=== PATIENT | female | born 1940 | race Two or more races ===

== ENCOUNTER 2021-01-31 10:12 | Inpatient (IN) | payer MEDICARE ==
[~2021-01-31] VITALS: Ht 165.1 cm; Wt 68.5 kg
[2021-01-31] MEDS ORDERED: SODIUM CHLORIDE 0.9% 500 ML IVB ONE (10:45)
[2021-01-31] MEDS ORDERED: ACETAMINOPHEN 650 MG RECT SUPP PR ONE ×2 (10:55→11:00)
[2021-01-31 11:18] LABS: Urine Bacteria NONE SEEN /hpf (None Seen); Urine Blood Negative /uL (Negative); Urine Specific Gravity 1.008 (1.001-1.035); Urine WBC 1 /hpf (0 - 5)
[2021-01-31 11:37] LABS: Alcohol, Urine < 3.0 mg/dL (0-10); Amphetamine Screen, Urine NEGATIVE (NEGATIVE); Barbiturate Scree,Urine NEGATIVE (NEGATIVE); Benzodiazephine Screen, Urine POSITIVE (NEGATIVE); Cannabinoid Screen, Urine NEGATIVE (NEGATIVE); Cocaine Screen, Urine NEGATIVE (NEGATIVE); Opiate Scree,Urine NEGATIVE (NEGATIVE); Phencyclidine Screen, Urine NEGATIVE (NEGATIVE)
[2021-01-31 11:41] LABS: Basophils # (auto) 0.1 10 ^3/uL (0-0.2); Basophils % (auto) 0.8 % (0.0-2.0); Eosinophils # (auto) 0.2 10 ^3/uL (0-0.8); Eosinophils % (auto) 1.3 % (0.0-7.0); Hematocrit 34.3 % (36.0-46.0); Hemoglobin 11.2 g/dL (12.2-16.2); Lymphocytes # (auto) 1.4 10 ^3/uL (0.4-5.4); Lymphocytes % (auto) 10.2 % (10.0-50.0); Mean Corpuscular Hemoglobin 26.3 pg (28.0-32.0); Mean Corpuscular Hgb Conc. 32.8 g/dL (32.0-36.0); Mean Corpuscular Volume 80.3 fL (80.0-100.0); Monocytes # (auto) 0.9 10 ^3/uL (0-1.3); Monocytes % (auto) 6.7 % (0.0-12.0); Neutrophils # (auto) 11.1 10 ^3/uL (1.6-8.6); Nucleated Red Blood Cells % 0.1 %; Red Blood Cells 4.27 10^6/uL (4.0-5.20); Red Cell Distribution Width 20.2 % (11.8-14.3); White Blood Cell 13.7 10^3/uL (4.4-10.8)
[2021-01-31 11:58] LABS: INR 1.02 (0.9-1.15); Partial Thromboplastin Time 21.1 sec (23.6-33.0)
[2021-01-31 12:15] LABS: Albumin 3.1 g/dL (3.4-5.0); Calcium 8.5 mg/dL (8.5-10.1); Potassium 3.8 mmol/L (3.5-5.1)
[2021-01-31 12:23] LABS: BUN/Creatinine Ratio 11.3; Bilirubin, Total 0.6 mg/dL (0.2-1.0); Total Protein 6.7 g/dL (6.4-8.2)
[2021-01-31] MEDS ORDERED: MORPHINE SULFATE INJECTION 2 MG/2 ML SYRG IV PRN ×2 (13:30)
[2021-01-31] MEDS ORDERED: HYDROcodone-ACET 5/325MG TAB PO PRN (13:30)
[2021-01-31] MEDS ORDERED: NITROGLYCERIN 0.4 MG SL TAB SL PRN (13:30)
[2021-01-31] MEDS ORDERED: ONDANSETRON HCL 4 MG/2 ML VIAL IV PRN (13:30)
[2021-01-31] MEDS ORDERED: ACETAMINOPHEN 500 MG TAB PO PRN ×2 (13:30)
[2021-01-31] MEDS: SODIUM CHLORIDE 0.9% 1,000 ML IV SCH ×2 (14:31→23:30)
[2021-01-31] MEDS ORDERED: PIPERACILLIN-TAZOB 3.375GM 100 ML IV SCH (18:00)
[2021-01-31] MEDS: PIPERACILLIN-TAZOB 3.375GM 100 ML IV SCH (18:16)
[2021-01-31] MEDS: HYDROcodone-ACET 5/325MG TAB PO PRN (22:52)
[2021-02-01] MEDS: PIPERACILLIN-TAZOB 3.375GM 100 ML IV SCH ×4 (00:19→18:14)
[2021-02-01] MEDS: SODIUM CHLORIDE 0.9% 1,000 ML IV SCH ×2 (01:30→18:15)
[2021-02-01 04:47] LABS: Basophils # (auto) 0.1 10 ^3/uL (0-0.2); Eosinophils # (auto) 0.2 10 ^3/uL (0-0.8); Hemoglobin 10.3 g/dL (12.2-16.2); Lymphocytes # (auto) 0.8 10 ^3/uL (0.4-5.4); Lymphocytes % (auto) 10.8 % (10.0-50.0); Mean Corpuscular Hemoglobin 26.6 pg (28.0-32.0); Mean Corpuscular Hgb Conc. 32.9 g/dL (32.0-36.0); Mean Corpuscular Volume 80.9 fL (80.0-100.0); Monocytes # (auto) 0.5 10 ^3/uL (0-1.3); White Blood Cell 7.2 10^3/uL (4.4-10.8)
[2021-02-01 04:49] LABS: Hematocrit 31.4 % (36.0-46.0); Monocytes % (auto) 6.6 % (0.0-12.0); Neutrophils # (auto) 5.7 10 ^3/uL (1.6-8.6); Neutrophils % (auto) 78.6 % (37.0-80.0); Red Blood Cells 3.88 10^6/uL (4.0-5.20)
[2021-02-01 04:59] LABS: Red Cell Distribution Width 20.4 % (11.8-14.3)
[2021-02-01 05:06] LABS: Potassium 4.3 mmol/L (3.5-5.1)
[2021-02-01 05:22] LABS: BUN/Creatinine Ratio 13.6; Calcium 8.4 mg/dL (8.5-10.1)
[2021-02-01] MEDS: ASPirin-EC 81 mg tab PO SCH (11:03)
[2021-02-01] MEDS: MORPHINE SULFATE INJECTION 2 MG/2 ML SYRG IV PRN (14:12)
[2021-02-01] MEDS: HYDROcodone-ACET 5/325MG TAB PO PRN (18:29)
[2021-02-02] MEDS: PIPERACILLIN-TAZOB 3.375GM 100 ML IV SCH ×5 (01:04→23:50)
[2021-02-02] MEDS: HYDROcodone-ACET 5/325MG TAB PO PRN ×2 (01:04→15:15)
[2021-02-02] MEDS: SODIUM CHLORIDE 0.9% 1,000 ML IV SCH (01:05)
[2021-02-02] MEDS: hydrALAZINE HCL 20 MG/ML VL IV PRN ×4 (02:05→22:59)
[2021-02-02] MEDS: MORPHINE SULFATE INJECTION 2 MG/2 ML SYRG IV PRN ×2 (03:12→20:16)
[2021-02-02] MEDS: ONDANSETRON HCL 4 MG/2 ML VIAL IV PRN ×2 (08:15→19:01)
[2021-02-02] MEDS ORDERED: LORazepam 2MG/ML-1ML VIAL IV PRN (09:45)
[2021-02-02] MEDS: ASPirin-EC 81 mg tab PO SCH (10:00)
[2021-02-02] MEDS ORDERED: amLODIPine BESYLATE 5 MG TAB PO ONE (18:45)
[2021-02-02] MEDS: PROCHLORPERAZINE EDISYLATE 5 MG/ML 2ML VIAL IV ONE ×2 (18:49→18:54)
[2021-02-02 21:50] VITALS: BP 193/73
[2021-02-02 22:44] VITALS: BP 193/73
[2021-02-03] MEDS: ONDANSETRON HCL 4 MG/2 ML VIAL IV PRN ×2 (02:15→08:44)
[2021-02-03] MEDS: MORPHINE SULFATE INJECTION 2 MG/2 ML SYRG IV PRN ×2 (02:42→08:46)
[2021-02-03 05:00] VITALS: BP 146/76
[2021-02-03] MEDS: PIPERACILLIN-TAZOB 3.375GM 100 ML IV SCH ×3 (06:15→18:00)
[2021-02-03] MEDS: ASPirin-EC 81 mg tab PO SCH (08:44)
[2021-02-03 09:00] VITALS: BP 144/66
[2021-02-03] MEDS ORDERED: amLODIPine BESYLATE 5 MG TAB PO SCH (10:00)
[2021-02-03 13:06] VITALS: BP 145/64
[2021-02-03] MEDS ORDERED: AMLO-496 PO (15:13)
[2021-02-03] MEDS ORDERED: LEVO500T31 PO (15:14)
[2021-02-03] MEDS ORDERED: LOSA25TA38 PO (15:15)
[2021-02-03 16:53] VITALS: BP 154/76
[2021-02-03 17:07] VITALS: BP 133/69
== END 2021-02-03 18:00 | disposition home or self-care (01) | DRG 871 ==
LOC: EDBD 10:12 → ER 10:12 → TELE 13:17 → TELE-CENTR 02-02 21:49
PROVIDERS: ADMIT Nurse Practitioner Acute Care; ATTEND Internal Medicine Nephrology
PROC: 06HM33Z Insertion of Infusion Device into Right Femoral Vein, Percutaneous Approach (ICD-10-PCS; principal; 2021-01-31)
DX: A41.9 Sepsis, unspecified organism (principal); G93.41 Metabolic encephalopathy; I21.A1 Myocardial infarction type 2; J15.6 Pneumonia due to other Gram-negative bacteria; M86.8X7 Other osteomyelitis, ankle and foot; I13.0 Hypertensive heart and chronic kidney disease with heart failure and stage 1 through stage 4 chronic kidney disease, or unspecified chronic kidney disease; J44.0 Chronic obstructive pulmonary disease with (acute) lower respiratory infection; J96.10 Chronic respiratory failure, unspecified whether with hypoxia or hypercapnia; N17.9 Acute kidney failure, unspecified; Z20.822 Contact with and (suspected) exposure to COVID-19; L97.529 Non-pressure chronic ulcer of other part of left foot with unspecified severity; N18.31 Chronic kidney disease, stage 3a; L03.032 Cellulitis of left toe; E86.1 Hypovolemia; R15.9 Full incontinence of feces; G89.4 Chronic pain syndrome; D64.9 Anemia, unspecified; I50.9 Heart failure, unspecified; M41.9 Scoliosis, unspecified; Z91.83 Wandering in diseases classified elsewhere; R65.20 Severe sepsis without septic shock
CPT/HCPCS: 36415; 36556; 70450; 71045; 71250; 73700; 80048; 80053; 80307; 81001; 82728; 82962; 83605; 83735; 84484; 85025; 85379; 85610; 85730; 86141; 87040; 87086; 87426; 93005; 93306; 93926; 93970; 95819; 96360; 99291; G0378; J2405; J2543

== ENCOUNTER 2022-01-08 10:22 | Inpatient (IN) | payer MEDICARE, OTHER ==
[~2022-01-08] VITALS: Ht 162.6 cm; Wt 71.5 kg
[~2022-01-08 10:22] MED LIST: AMLO-496 PO; LEVO500T31 PO; LOSA25TA38 PO
[2022-01-08] MEDS ORDERED: SODIUM CHLORIDE 0.9% 1,000 ML IV ONE (12:30)
[2022-01-08 13:21] LABS: Urine Bacteria NONE SEEN /hpf (None Seen); Urine Blood 1+ /uL (Negative); Urine Specific Gravity 1.044 (1.001-1.035); Urine WBC 14 /hpf (0 - 5)
[2022-01-08 14:21] LABS: Basophils # (auto) 0 10 ^3/uL (0-0.2); Basophils % (auto) 0.5 % (0.0-2.0); Eosinophils # (auto) 0 10 ^3/uL (0-0.8); Eosinophils % (auto) 0.1 % (0.0-7.0); Hematocrit 43.9 % (36.0-46.0); Hemoglobin 13.9 g/dL (12.2-16.2); Lymphocytes # (auto) 1.2 10 ^3/uL (0.4-5.4); Lymphocytes % (auto) 10.9 % (10.0-50.0); Mean Corpuscular Hemoglobin 28.2 pg (28.0-32.0); Mean Corpuscular Hgb Conc. 31.7 g/dL (32.0-36.0); Mean Corpuscular Volume 89.1 fL (80.0-100.0); Monocytes # (auto) 0.8 10 ^3/uL (0-1.3); Monocytes % (auto) 7.1 % (0.0-12.0); Neutrophils # (auto) 8.6 10 ^3/uL (1.6-8.6); Neutrophils % (auto) 81.4 % (37.0-80.0); Nucleated Red Blood Cells % 0.1 %; Red Blood Cells 4.93 10^6/uL (4.0-5.20); Red Cell Distribution Width 18.6 % (11.8-14.3); White Blood Cell 10.6 10^3/uL (4.4-10.8)
[2022-01-08] MEDS ORDERED: ONDANSETRON HCL 4 MG/2 ML VIAL IV ONE ×2 (14:30→16:00)
[2022-01-08 14:31] LABS: Albumin 3.7 g/dL (3.4-5.0); BUN/Creatinine Ratio 14.6; Calcium 8.7 mg/dL (8.5-10.1); Potassium 3.7 mmol/L (3.5-5.1)
[2022-01-08 14:34] LABS: Bilirubin, Total 0.6 mg/dL (0.2-1.0); Total Protein 6.5 g/dL (6.4-8.2)
[2022-01-08] MEDS: ASPirin 81 mg TAB PO ONE ×2 (14:45→15:05)
[2022-01-08] MEDS ORDERED: ENOXAPARIN SOD 80 MG/0.8ML SYRINGE SC ONE (14:45)
[2022-01-08] MEDS ORDERED: FUROSEMIDE 100 MG/10ML VIAL IV ONE (15:00)
[2022-01-08] MEDS ORDERED: MORPHINE SULFATE INJ 2 MG/ml SYRG IV PRN ×2 (15:00→19:00)
[2022-01-08] MEDS ORDERED: NITROGLYCERIN 0.4 MG SL TAB SL PRN ×2 (15:00→19:00)
[2022-01-08] MEDS ORDERED: POTASSIUM CHL 20 Meq TABLET PO ONE (15:15)
[2022-01-08 15:30] LABS: Cholesterol 135 mg/dL (< 200); HDL Cholesterol 68 mg/dL (40-59); LDL Cholesterol 63 mg/dL (< 100); Triglycerides 71 mg/dL (< 150)
[2022-01-08 15:33] LABS: INR 1.23 (0.9-1.15)
[2022-01-08] MEDS ORDERED: hydrALAZINE HCL 20 MG/ML VL IV ONE (16:00)
[2022-01-08] MEDS ORDERED: hydrALAZINE HCL 20 MG/ML VL IV PRN (16:00)
[2022-01-08] MEDS ORDERED: HEPARIN SODIUM (PORCINE) 5000 UNITS/ML 1ML VIAL IV ONE (16:00)
[2022-01-08] MEDS ORDERED: HEPARIN DRIP/D5W 100UNITS/ML 250 ML IV SCH (16:00)
[2022-01-08] MEDS ORDERED: ASPirin 325 MG TAB PO ONE (16:00)
[2022-01-08] MEDS ORDERED: VERAPAMIL 2.5MG/ML INJ 2ML VIAL IV ONE (16:26)
[2022-01-08] MEDS ORDERED: SODIUM CHL 0.9% 0 ML ONE (16:26)
[2022-01-08] MEDS ORDERED: HEPARIN SODIUM (PORCINE) 5000 UNITS/ML 1ML VIAL ONE (16:26)
[2022-01-08] MEDS ORDERED: ANGIOMAX 250 MG VIAL IV ONE (16:26)
[2022-01-08] MEDS ORDERED: fentaNYL CITRATE 100 MCG/2 ML VL ONE (16:26)
[2022-01-08] MEDS ORDERED: MIDAZOLAM HCL 2MG/2ML 2ml VIAL (1mg/ml) ONE (16:26)
[2022-01-08] MEDS ORDERED: IODIXANOL 320MG/ML 100ML BTL IV ONE (16:26)
[2022-01-08] MEDS ORDERED: LIDOCAINE 2%HCL (LOCAL ANESTH.) INJ 10ml MDV ONE (16:27)
[2022-01-08] MEDS ORDERED: ASPirin 81 mg TAB ONE (18:05)
[2022-01-08] MEDS ORDERED: CLOPIDOGREL 300 MG TAB ONE (18:05)
[2022-01-08] MEDS ORDERED: ONDANSETRON HCL 4 MG/2 ML VIAL ONE (18:14)
[2022-01-08] MEDS ORDERED: METOCLOPRAMIDE HCL 5MG/ml INJ 2ml VIAL IV ONE (19:00)
[2022-01-08] MEDS ORDERED: ACETAMINOPHEN 500 MG TAB PO PRN (19:00)
[2022-01-08] MEDS ORDERED: LORazepam 2MG/ML-1ML VIAL IV PRN (19:00)
[2022-01-08] MEDS: CARVEDILOL 3.125 MG TAB PO SCH (20:15)
[2022-01-08] MEDS: PANTOPRAZOLE 40 MG/10 ML VIAL INJ IV SCH (20:15)
[2022-01-08] MEDS: ATORVASTATIN 20 MG TAB PO SCH (20:15)
[2022-01-08 20:44] VITALS: BP_SYST 157; BP_SYST 184; BP_DIAS 82; BP_DIAS 98
[2022-01-08 20:53] VITALS: BP 157/82
[2022-01-08 22:00] VITALS: BP 96/55
[2022-01-09] VITALS (7 sets, daily range): BP systolic 95–123; BP diastolic 46–56
[2022-01-09] MEDS: ONDANSETRON HCL 4 MG/2 ML VIAL IV PRN ×2 (00:20→04:32)
[2022-01-09] MEDS ORDERED: PANT1INJ3 PO (02:34)
[2022-01-09] MEDS ORDERED: ALPR0.5T7 PO (02:35)
[2022-01-09] MEDS ORDERED: GABA300C10 PO (02:36)
[2022-01-09] MEDS ORDERED: CLOP75TA70 PO (02:38)
[2022-01-09 05:48] LABS: Basophils # (auto) 0.1 10 ^3/uL (0-0.2); Basophils % (auto) 0.7 % (0.0-2.0); Eosinophils # (auto) 0 10 ^3/uL (0-0.8); Eosinophils % (auto) 0.1 % (0.0-7.0); Hemoglobin 14.2 g/dL (12.2-16.2); Lymphocytes # (auto) 1.3 10 ^3/uL (0.4-5.4); Lymphocytes % (auto) 10.2 % (10.0-50.0); Mean Corpuscular Hemoglobin 29.4 pg (28.0-32.0); Mean Corpuscular Hgb Conc. 33.1 g/dL (32.0-36.0); Mean Corpuscular Volume 88.7 fL (80.0-100.0); Monocytes # (auto) 0.9 10 ^3/uL (0-1.3); Monocytes % (auto) 7.1 % (0.0-12.0); Neutrophils # (auto) 10.5 10 ^3/uL (1.6-8.6); Neutrophils % (auto) 81.9 % (37.0-80.0); Red Blood Cells 4.85 10^6/uL (4.0-5.20); Red Cell Distribution Width 18.9 % (11.8-14.3); White Blood Cell 12.8 10^3/uL (4.4-10.8)
[2022-01-09 06:02] LABS: Potassium 3.3 mmol/L (3.5-5.1)
[2022-01-09 06:11] LABS: Albumin 3.6 g/dL (3.4-5.0); BUN/Creatinine Ratio 13.6; Bilirubin, Total 0.6 mg/dL (0.2-1.0); Calcium 8.4 mg/dL (8.5-10.1); Total Protein 6.6 g/dL (6.4-8.2)
[2022-01-09] MEDS: FUROSEMIDE 40 MG/4 ML VIAL IV SCH ×2 (06:40→18:22)
[2022-01-09] MEDS ORDERED: POTASSIUM EFFERVESENT TAB 25 MEQ PO ONE (08:00)
[2022-01-09] MEDS: ASPirin 81 mg TAB PO SCH (09:02)
[2022-01-09] MEDS: CARVEDILOL 3.125 MG TAB PO SCH ×2 (09:02→21:40)
[2022-01-09] MEDS: LISINOPRIL 5 MG TAB PO SCH (09:03)
[2022-01-09] MEDS: CLOPIDOGREL BISULFATE 75 MG TAB PO SCH (09:03)
[2022-01-09 09:58] LABS: Amylase 38 U/L (25-115); Lipase 66 U/L (73-393)
[2022-01-09] MEDS: MAGNESIUM SULFATE 1GM/100ML 100 ML IV SCH ×4 (11:00→16:23)
[2022-01-09] MEDS: ATORVASTATIN 20 MG TAB PO SCH (21:39)
[2022-01-09] MEDS: PANTOPRAZOLE 40 MG/10 ML VIAL INJ IV SCH (21:40)
[2022-01-10] MEDS: ONDANSETRON HCL 4 MG/2 ML VIAL IV PRN ×4 (00:08→17:32)
[2022-01-10 04:59] VITALS: BP 124/82
[2022-01-10] MEDS: FUROSEMIDE 40 MG/4 ML VIAL IV SCH ×2 (05:43→17:31)
[2022-01-10 09:00] VITALS: BP 130/64
[2022-01-10] MEDS: CLOPIDOGREL BISULFATE 75 MG TAB PO SCH (10:12)
[2022-01-10] MEDS: ASPirin 81 mg TAB PO SCH (10:12)
[2022-01-10] MEDS: CARVEDILOL 3.125 MG TAB PO SCH ×2 (10:13→21:43)
[2022-01-10] MEDS: LISINOPRIL 5 MG TAB PO SCH (10:16)
[2022-01-10] MEDS: SUCRALFATE 1 GM TAB PO SCH ×4 (11:30→21:44)
[2022-01-10] MEDS: HYDROcodone-ACET 5/325MG TAB PO PRN ×2 (12:17→16:30)
[2022-01-10 13:00] VITALS: BP 112/64
[2022-01-10 16:47] VITALS: BP 102/57
[2022-01-10] MEDS ORDERED: PANTOPRAZOLE 40 MG/10 ML VIAL INJ IV ONE (17:30)
[2022-01-10 20:00] VITALS: BP 130/55
[2022-01-10] MEDS: METOCLOPRAMIDE HCL 5MG/ml INJ 2ml VIAL IV SCH (21:37)
[2022-01-10] MEDS: PANTOPRAZOLE 40 MG/10 ML VIAL INJ IV SCH (21:37)
[2022-01-10] MEDS: ATORVASTATIN 20 MG TAB PO SCH (21:37)
[2022-01-10 22:00] VITALS: BP 130/55
[2022-01-11] MEDS: HYDROcodone-ACET 5/325MG TAB PO PRN ×3 (03:51→16:30)
[2022-01-11 05:00] VITALS: BP 102/47
[2022-01-11] MEDS: METOCLOPRAMIDE HCL 5MG/ml INJ 2ml VIAL IV SCH ×2 (05:23→20:06)
[2022-01-11] MEDS: FUROSEMIDE 40 MG/4 ML VIAL IV SCH (05:26)
[2022-01-11] MEDS: SUCRALFATE 1 GM TAB PO SCH ×3 (06:16→20:05)
[2022-01-11 09:00] VITALS: BP 113/39
[2022-01-11] MEDS: ASPirin 81 mg TAB PO SCH (09:41)
[2022-01-11] MEDS: CLOPIDOGREL BISULFATE 75 MG TAB PO SCH (09:46)
[2022-01-11] MEDS: CARVEDILOL 3.125 MG TAB PO SCH (09:48)
[2022-01-11] MEDS: LISINOPRIL 5 MG TAB PO SCH (09:51)
[2022-01-11] MEDS ORDERED: PANTOPRAZOLE 40 MG/10 ML VIAL INJ IV SCH (10:00)
[2022-01-11 11:16] LABS: BUN/Creatinine Ratio 19.5; Calcium 8.6 mg/dL (8.5-10.1); Magnesium 1.8 mg/dL (1.6-2.6); Potassium 3.4 mmol/L (3.5-5.1)
[2022-01-11] MEDS ORDERED: PANT40T PO (11:53)
[2022-01-11] MEDS ORDERED: ASPI-498 PO (11:53)
[2022-01-11] MEDS ORDERED: CLOP75TA28 PO (11:53)
[2022-01-11] MEDS ORDERED: ONDA-144 PO (11:53)
[2022-01-11] MEDS ORDERED: METO-281 PO (11:53)
[2022-01-11] MEDS ORDERED: SUCR1TAB22 OR (11:53)
[2022-01-11 13:00] VITALS: BP 139/59
[2022-01-11] MEDS ORDERED: SODIUM CHLORIDE 0.9% 1,000 ML IV SCH (13:00)
[2022-01-11] MEDS ORDERED: POTASSIUM EFFERVESENT TAB 25 MEQ PO ONE (13:00)
[2022-01-11] MEDS: ONDANSETRON HCL 4 MG/2 ML VIAL IV PRN (16:31)
[2022-01-11 17:00] VITALS: BP 124/50
[2022-01-11 17:55] VITALS: BP 113/89
== END 2022-01-11 20:15 | disposition home health service (06) | DRG 246 ==
LOC: ER 10:22 → EDBD 10:22 → TELE 14:52 → TELE-WESTW 19:49
PROVIDERS: ADMIT Registered Nurse; ATTEND Family Medicine
PROC: 027034Z Dilation of Coronary Artery, One Artery with Drug-eluting Intraluminal Device, Percutaneous Approach (ICD-10-PCS; principal; 2022-01-08)
PROC: 4A023N7 Measurement of Cardiac Sampling and Pressure, Left Heart, Percutaneous Approach (ICD-10-PCS; 2022-01-08)
PROC: B211YZZ Fluoroscopy of Multiple Coronary Arteries using Other Contrast (ICD-10-PCS; 2022-01-08)
PROC: B215YZZ Fluoroscopy of Left Heart using Other Contrast (ICD-10-PCS; 2022-01-08)
DX: I21.4 Non-ST elevation (NSTEMI) myocardial infarction (principal); I50.33 Acute on chronic diastolic (congestive) heart failure; I13.0 Hypertensive heart and chronic kidney disease with heart failure and stage 1 through stage 4 chronic kidney disease, or unspecified chronic kidney disease; N17.9 Acute kidney failure, unspecified; E78.5 Hyperlipidemia, unspecified; E66.9 Obesity, unspecified; N18.2 Chronic kidney disease, stage 2 (mild); I25.10 Atherosclerotic heart disease of native coronary artery without angina pectoris; K52.9 Noninfective gastroenteritis and colitis, unspecified; E83.42 Hypomagnesemia; Z20.822 Contact with and (suspected) exposure to COVID-19; E87.6 Hypokalemia; J44.9 Chronic obstructive pulmonary disease, unspecified; Z88.1 Allergy status to other antibiotic agents; Z88.8 Allergy status to other drugs, medicaments and biological substances; Z68.27 Body mass index [BMI] 27.0-27.9, adult
CPT/HCPCS: 36415; 71045; 74176; 76705; 80048; 80053; 80061; 81001; 82150; 83036; 83690; 83735; 83880; 84443; 84484; 85025; 85610; 92928; 93005; 93306; 93458; 96361; 96374; 96375; 96376; 99152; 99153; C1874; C9113; G0378; J2001; J2250; J2405; Q9967

== ENCOUNTER 2022-01-14 15:59 | Inpatient (IN) | payer MEDICARE, OTHER ==
[~2022-01-14] VITALS: Ht 154.9 cm; Wt 71.5 kg
[~2022-01-14 15:59] MED LIST changes: +ALPR0.5T7 PO; +ASPI-498 PO; +CLOP75TA28 PO; +CLOP75TA70 PO; +GABA300C10 PO; +METO-281 PO; +ONDA-144 PO; +PANT1INJ3 PO; +PANT40T PO; +SUCR1TAB22 OR
[2022-01-14] MEDS ORDERED: SODIUM CHLORIDE 0.9% 1,000 ML IV ONE (16:30)
[2022-01-14 18:29] LABS: Basophils # (auto) 0 10 ^3/uL (0-0.2); Basophils % (auto) 0.4 % (0.0-2.0); Eosinophils # (auto) 0.5 10 ^3/uL (0-0.8); Eosinophils % (auto) 4.1 % (0.0-7.0); Hematocrit 41.3 % (36.0-46.0); Hemoglobin 13.1 g/dL (12.2-16.2); Lymphocytes # (auto) 1.3 10 ^3/uL (0.4-5.4); Lymphocytes % (auto) 10.8 % (10.0-50.0); Mean Corpuscular Hemoglobin 28.6 pg (28.0-32.0); Mean Corpuscular Hgb Conc. 31.7 g/dL (32.0-36.0); Mean Corpuscular Volume 90.3 fL (80.0-100.0); Monocytes # (auto) 0.8 10 ^3/uL (0-1.3); Monocytes % (auto) 6.9 % (0.0-12.0); Neutrophils # (auto) 9.1 10 ^3/uL (1.6-8.6); Neutrophils % (auto) 77.8 % (37.0-80.0); Red Blood Cells 4.58 10^6/uL (4.0-5.20); Red Cell Distribution Width 19.2 % (11.8-14.3); White Blood Cell 11.8 10^3/uL (4.4-10.8)
[2022-01-14 18:44] LABS: Albumin 3.2 g/dL (3.4-5.0); Potassium 3.2 mmol/L (3.5-5.1)
[2022-01-14 18:49] LABS: BUN/Creatinine Ratio 21.7; Bilirubin, Total 0.4 mg/dL (0.2-1.0); Total Protein 6.4 g/dL (6.4-8.2)
[2022-01-14] MEDS ORDERED: MORPHINE SULFATE INJ 2 MG/ml SYRG IV PRN (21:15)
[2022-01-14] MEDS ORDERED: ACETAMINOPHEN 325 MG TAB PO ONE (21:15)
[2022-01-14] MEDS ORDERED: NITROGLYCERIN 0.4 MG SL TAB SL PRN (21:15)
[2022-01-14] MEDS ORDERED: POTASSIUM CHL 20 Meq TABLET PO ONE (21:15)
[2022-01-14] MEDS ORDERED: ATORVASTATIN 20 MG TAB PO SCH (22:00)
[2022-01-14] MEDS: ONDANSETRON HCL 4 MG/2 ML VIAL IV PRN (22:46)
[2022-01-15] MEDS: HYDROcodone-ACET 5/325MG TAB PO PRN ×3 (01:06→20:45)
[2022-01-15 01:24] VITALS: BP 134/69
[2022-01-15] MEDS: ONDANSETRON HCL 4 MG/2 ML VIAL IV PRN ×4 (04:22→20:45)
[2022-01-15 04:43] LABS: Basophils # (auto) 0.1 10 ^3/uL (0-0.2); Basophils % (auto) 0.7 % (0.0-2.0); Eosinophils # (auto) 0.4 10 ^3/uL (0-0.8); Eosinophils % (auto) 4.7 % (0.0-7.0); Hematocrit 40.3 % (36.0-46.0); Hemoglobin 13.2 g/dL (12.2-16.2); Lymphocytes # (auto) 1.2 10 ^3/uL (0.4-5.4); Lymphocytes % (auto) 13.6 % (10.0-50.0); Mean Corpuscular Hemoglobin 29.8 pg (28.0-32.0); Mean Corpuscular Hgb Conc. 32.8 g/dL (32.0-36.0); Monocytes # (auto) 0.6 10 ^3/uL (0-1.3); Monocytes % (auto) 7.1 % (0.0-12.0); Neutrophils # (auto) 6.7 10 ^3/uL (1.6-8.6); Neutrophils % (auto) 73.9 % (37.0-80.0); Red Blood Cells 4.43 10^6/uL (4.0-5.20); Red Cell Distribution Width 18.8 % (11.8-14.3)
[2022-01-15 04:56] LABS: Albumin 3.1 g/dL (3.4-5.0); Calcium 9.2 mg/dL (8.5-10.1); Potassium 4.1 mmol/L (3.5-5.1)
[2022-01-15 04:58] LABS: Bilirubin, Total 0.5 mg/dL (0.2-1.0); Total Protein 6.4 g/dL (6.4-8.2)
[2022-01-15 05:00] VITALS: BP 145/73
[2022-01-15 09:00] VITALS: BP 145/66
[2022-01-15] MEDS ORDERED: SODIUM CHLORIDE 0.9% 1,000 ML IV SCH (09:00)
[2022-01-15] MEDS: amLODIPine BESYLATE 5 MG TAB PO SCH (09:30)
[2022-01-15] MEDS: PANTOPRAZOLE 40 MG TAB PO SCH (09:31)
[2022-01-15] MEDS: GABAPENTIN 400 MG CAP PO SCH (09:31)
[2022-01-15] MEDS: CLOPIDOGREL BISULFATE 75 MG TAB PO SCH (09:31)
[2022-01-15] MEDS: LOSARTAN POTASSIUM 25 MG TAB PO SCH (09:32)
[2022-01-15] MEDS: ASPirin 81 mg TAB PO SCH (09:32)
[2022-01-15] MEDS: ENOXAPARIN SOD 40 MG/0.4 ML SYRINGE SC SCH (09:32)
[2022-01-15] MEDS ORDERED: OMNIPAQUE ORAL SOLN 500ml 12mg/ml PO ONE (09:53)
[2022-01-15] MEDS ORDERED: IOHEXOL 300 MG/ML 100ML BOTTLE IJ ONE (09:53)
[2022-01-15 12:47] VITALS: BP 123/45
[2022-01-15 17:00] VITALS: BP 114/54
[2022-01-15 22:00] VITALS: BP 127/63
[2022-01-15] MEDS: ATORVASTATIN 20 MG TAB PO SCH (22:06)
[2022-01-15] MEDS: TEMAZEPAM 15 MG CAP PO PRN (22:06)
[2022-01-16] MEDS: HYDROcodone-ACET 5/325MG TAB PO PRN ×2 (00:54→11:22)
[2022-01-16 05:00] VITALS: BP 141/57
[2022-01-16] MEDS: MUPIROCIN 2% OINT 15gm or 22gm EACHNOSTRI SCH ×3 (06:48→22:21)
[2022-01-16 07:30] VITALS: BP 161/70
[2022-01-16 09:28] VITALS: BP 161/70
[2022-01-16] MEDS: ENOXAPARIN SOD 40 MG/0.4 ML SYRINGE SC SCH (11:19)
[2022-01-16] MEDS: PANTOPRAZOLE 40 MG TAB PO SCH (11:20)
[2022-01-16] MEDS: GABAPENTIN 400 MG CAP PO SCH (11:20)
[2022-01-16] MEDS: ASPirin 81 mg TAB PO SCH (11:20)
[2022-01-16] MEDS: MAGNESIUM OXIDE 400 MG TAB PO SCH (11:20)
[2022-01-16] MEDS: CLOPIDOGREL BISULFATE 75 MG TAB PO SCH (11:20)
[2022-01-16] MEDS: amLODIPine BESYLATE 5 MG TAB PO SCH (11:21)
[2022-01-16] MEDS: LOSARTAN POTASSIUM 25 MG TAB PO SCH (11:24)
[2022-01-16] MEDS ORDERED: OXY5T PO (11:56)
[2022-01-16] MEDS ORDERED: VALS40TA2 PO (11:56)
[2022-01-16] MEDS ORDERED: METH10T PO (11:56)
[2022-01-16] MEDS ORDERED: ATOR10TA52 PO (11:56)
[2022-01-16] MEDS ORDERED: GABA300C10 PO (11:56)
[2022-01-16] MEDS ORDERED: ALPR0.254 PO (11:56)
[2022-01-16] MEDS ORDERED: GABA100C9 PO ×2 (11:59)
[2022-01-16] MEDS ORDERED: PANT40TA2 PO (12:01)
[2022-01-16] MEDS ORDERED: MECL12.514 PO (12:04)
[2022-01-16] MEDS ORDERED: FLUT1SPR21 (12:18)
[2022-01-16] MEDS ORDERED: ACET-1158 PO (12:18)
[2022-01-16] MEDS ORDERED: CHOL20004 PO (12:18)
[2022-01-16] MEDS ORDERED: MULT-1018 PO (12:18)
[2022-01-16] MEDS ORDERED: MELA3TAB27 PO (12:18)
[2022-01-16] MEDS ORDERED: LEVA0.6320 IN (12:24)
[2022-01-16] MEDS ORDERED: FLUT250M2 INH (12:24)
[2022-01-16] MEDS ORDERED: COLE1TAB2 PO (12:24)
[2022-01-16] MEDS ORDERED: BUDE0.5S IN (12:24)
[2022-01-16 13:38] VITALS: BP 170/65
[2022-01-16 16:37] VITALS: BP 116/56
[2022-01-16] MEDS ORDERED: FUROSEMIDE 20 MG/2 ML VIAL IV ONE (17:15)
[2022-01-16 22:00] VITALS: BP 106/52
[2022-01-16] MEDS: ATORVASTATIN 20 MG TAB PO SCH (22:22)
[2022-01-17 05:00] VITALS: BP 138/57
[2022-01-17 06:45] LABS: BUN/Creatinine Ratio 14.3; Potassium 4.3 mmol/L (3.5-5.1)
[2022-01-17 07:30] VITALS: BP 117/61
[2022-01-17] MEDS: MUPIROCIN 2% OINT 15gm or 22gm EACHNOSTRI SCH ×2 (09:21→21:45)
[2022-01-17] MEDS: ASPirin 81 mg TAB PO SCH (09:21)
[2022-01-17] MEDS: LOSARTAN POTASSIUM 25 MG TAB PO SCH (09:21)
[2022-01-17] MEDS: GABAPENTIN 400 MG CAP PO SCH ×2 (09:22→21:43)
[2022-01-17] MEDS: MAGNESIUM OXIDE 400 MG TAB PO SCH (09:22)
[2022-01-17] MEDS: CLOPIDOGREL BISULFATE 75 MG TAB PO SCH (09:22)
[2022-01-17] MEDS: amLODIPine BESYLATE 5 MG TAB PO SCH (09:22)
[2022-01-17] MEDS: PANTOPRAZOLE 40 MG TAB PO SCH (09:22)
[2022-01-17] MEDS: ENOXAPARIN SOD 40 MG/0.4 ML SYRINGE SC SCH (09:23)
[2022-01-17] MEDS: HYDROcodone-ACET 5/325MG TAB PO PRN ×2 (09:23→18:18)
[2022-01-17] MEDS: FUROSEMIDE 20 MG/2 ML VIAL IV SCH (10:00)
[2022-01-17] MEDS ORDERED: GABA400C11 PO ×3 (11:22)
[2022-01-17 13:00] VITALS: BP 99/58
[2022-01-17 16:45] VITALS: BP 94/46
[2022-01-17] MEDS ORDERED: ALPRAZolam 0.5 MG TAB PO PRN (21:00)
[2022-01-17] MEDS ORDERED: oxyCODONE HCL 5MG TAB PO PRN (21:15)
[2022-01-17] MEDS: TEMAZEPAM 15 MG CAP PO PRN (21:43)
[2022-01-17] MEDS: ATORVASTATIN 20 MG TAB PO SCH (21:43)
[2022-01-17] MEDS: METHADONE HCL 10 MG TAB PO SCH (21:44)
[2022-01-17 22:00] VITALS: BP 112/52
[2022-01-17] MEDS ORDERED: ALPRAZolam 0.25 MG TAB PO SCH (22:00)
[2022-01-18] MEDS: HYDROcodone-ACET 5/325MG TAB PO PRN ×2 (04:48→15:15)
[2022-01-18 05:00] VITALS: BP 125/65
[2022-01-18] MEDS: oxyCODONE HCL 5MG TAB PO PRN ×2 (07:53→16:37)
[2022-01-18 09:00] VITALS: BP 110/58
[2022-01-18] MEDS: ASPirin 81 mg TAB PO SCH (09:21)
[2022-01-18] MEDS: MAGNESIUM OXIDE 400 MG TAB PO SCH (09:22)
[2022-01-18] MEDS: GABAPENTIN 400 MG CAP PO SCH ×2 (09:22→22:13)
[2022-01-18] MEDS: LOSARTAN POTASSIUM 25 MG TAB PO SCH (09:22)
[2022-01-18] MEDS: amLODIPine BESYLATE 5 MG TAB PO SCH (09:23)
[2022-01-18] MEDS: CLOPIDOGREL BISULFATE 75 MG TAB PO SCH (09:23)
[2022-01-18] MEDS: ENOXAPARIN SOD 40 MG/0.4 ML SYRINGE SC SCH (09:24)
[2022-01-18] MEDS: METHADONE HCL 10 MG TAB PO SCH ×2 (09:24→22:13)
[2022-01-18] MEDS: PANTOPRAZOLE 40 MG TAB PO SCH (09:24)
[2022-01-18] MEDS: FUROSEMIDE 20 MG/2 ML VIAL IV SCH (09:24)
[2022-01-18] MEDS: MUPIROCIN 2% OINT 15gm or 22gm EACHNOSTRI SCH ×2 (09:45→22:12)
[2022-01-18 13:00] VITALS: BP 98/58
[2022-01-18 16:42] VITALS: BP 116/48
[2022-01-18 22:00] VITALS: BP 106/68
[2022-01-18] MEDS: ATORVASTATIN 20 MG TAB PO SCH (22:12)
[2022-01-19] MEDS: ACETAMINOPHEN 325 MG TAB PO PRN (03:00)
[2022-01-19 05:00] VITALS: BP 117/51
[2022-01-19] MEDS: oxyCODONE HCL 5MG TAB PO PRN (06:25)
[2022-01-19 09:12] VITALS: BP 83/42
[2022-01-19] MEDS: GABAPENTIN 400 MG CAP PO SCH (09:57)
[2022-01-19] MEDS: PANTOPRAZOLE 40 MG TAB PO SCH (09:57)
[2022-01-19] MEDS: CLOPIDOGREL BISULFATE 75 MG TAB PO SCH (09:57)
[2022-01-19] MEDS: ASPirin 81 mg TAB PO SCH (09:57)
[2022-01-19] MEDS: MAGNESIUM OXIDE 400 MG TAB PO SCH (09:57)
[2022-01-19] MEDS: ENOXAPARIN SOD 40 MG/0.4 ML SYRINGE SC SCH (09:58)
[2022-01-19] MEDS: LOSARTAN POTASSIUM 25 MG TAB PO SCH (10:00)
[2022-01-19] MEDS: amLODIPine BESYLATE 5 MG TAB PO SCH (10:00)
[2022-01-19] MEDS: FUROSEMIDE 20 MG/2 ML VIAL IV SCH (10:00)
[2022-01-19] MEDS: MUPIROCIN 2% OINT 15gm or 22gm EACHNOSTRI SCH ×2 (10:00→22:49)
[2022-01-19] MEDS: METHADONE HCL 10 MG TAB PO SCH ×2 (10:00→22:49)
[2022-01-19] MEDS: ALBUTEROL SULF 2.5 MG/0.5ML(0.5%) NEB SOLN NEB PRN (10:57)
[2022-01-19] MEDS: IPRATROPIUM BROM 0.5 MG/2.5ML INH SOL NEB PRN (10:57)
[2022-01-19 11:10] VITALS: BP 83/42
[2022-01-19 12:33] LABS: Basophils # (auto) 0.1 10 ^3/uL (0-0.2); Basophils % (auto) 0.7 % (0.0-2.0); Eosinophils # (auto) 0.2 10 ^3/uL (0-0.8); Eosinophils % (auto) 2.5 % (0.0-7.0); Hemoglobin 11.7 g/dL (12.2-16.2); Lymphocytes # (auto) 0.5 10 ^3/uL (0.4-5.4); Lymphocytes % (auto) 5.9 % (10.0-50.0); Mean Corpuscular Hemoglobin 29.3 pg (28.0-32.0); Mean Corpuscular Hgb Conc. 31.6 g/dL (32.0-36.0); Mean Corpuscular Volume 92.7 fL (80.0-100.0); Monocytes # (auto) 0.8 10 ^3/uL (0-1.3); Monocytes % (auto) 10.6 % (0.0-12.0); Neutrophils # (auto) 6.3 10 ^3/uL (1.6-8.6); Neutrophils % (auto) 80.3 % (37.0-80.0); Nucleated Red Blood Cells % 0.1 %; Red Cell Distribution Width 18.5 % (11.8-14.3); White Blood Cell 7.9 10^3/uL (4.4-10.8)
[2022-01-19 12:41] LABS: Albumin 2.8 g/dL (3.4-5.0); Potassium 5.2 mmol/L (3.5-5.1)
[2022-01-19 12:45] LABS: BUN/Creatinine Ratio 14.4; Bilirubin, Total 0.3 mg/dL (0.2-1.0)
[2022-01-19 13:00] VITALS: BP 93/46
[2022-01-19] MEDS ORDERED: SODIUM CHLORIDE 0.9% 1,000 ML IV ONE (15:45)
[2022-01-19 17:00] VITALS: BP 105/51
[2022-01-19 22:01] VITALS: BP 122/48
[2022-01-19] MEDS: ATORVASTATIN 20 MG TAB PO SCH (22:38)
[2022-01-20] MEDS: ACETAMINOPHEN 325 MG TAB PO PRN ×2 (02:54→09:55)
[2022-01-20] MEDS: ALBUTEROL SULF 2.5 MG/0.5ML(0.5%) NEB SOLN NEB PRN ×2 (03:42→11:18)
[2022-01-20] MEDS: IPRATROPIUM BROM 0.5 MG/2.5ML INH SOL NEB PRN ×2 (03:42→11:18)
[2022-01-20 04:54] VITALS: BP 98/38
[2022-01-20 05:31] LABS: Calcium 8.1 mg/dL (8.5-10.1); Potassium 4.4 mmol/L (3.5-5.1)
[2022-01-20 05:35] LABS: BUN/Creatinine Ratio 15.2
[2022-01-20 09:00] VITALS: BP 118/56
[2022-01-20] MEDS: MUPIROCIN 2% OINT 15gm or 22gm EACHNOSTRI SCH (09:54)
[2022-01-20] MEDS: MAGNESIUM OXIDE 400 MG TAB PO SCH (09:54)
[2022-01-20] MEDS: ASPirin 81 mg TAB PO SCH (09:54)
[2022-01-20] MEDS: METHADONE HCL 10 MG TAB PO SCH ×3 (09:54→12:11)
[2022-01-20] MEDS: PANTOPRAZOLE 40 MG TAB PO SCH (09:55)
[2022-01-20] MEDS: ENOXAPARIN SOD 40 MG/0.4 ML SYRINGE SC SCH (09:55)
[2022-01-20] MEDS: CLOPIDOGREL BISULFATE 75 MG TAB PO SCH (09:55)
[2022-01-20] MEDS: LOSARTAN POTASSIUM 25 MG TAB PO SCH (10:00)
[2022-01-20] MEDS: amLODIPine BESYLATE 5 MG TAB PO SCH (10:00)
[2022-01-20 13:07] VITALS: BP 124/64
== END 2022-01-20 13:00 | DRG 280 ==
LOC: ER 15:59 → EDBD 15:59 → TELE 21:16 → TELE-WESTW 23:54
PROVIDERS: ADMIT Nurse Practitioner; ATTEND Internal Medicine
DX: I21.4 Non-ST elevation (NSTEMI) myocardial infarction (principal); I50.41 Acute combined systolic (congestive) and diastolic (congestive) heart failure; I11.0 Hypertensive heart disease with heart failure; I25.10 Atherosclerotic heart disease of native coronary artery without angina pectoris; E78.5 Hyperlipidemia, unspecified; E87.6 Hypokalemia; R62.7 Adult failure to thrive; E66.9 Obesity, unspecified; E86.0 Dehydration; Z20.822 Contact with and (suspected) exposure to COVID-19; G89.29 Other chronic pain; J44.9 Chronic obstructive pulmonary disease, unspecified; Z79.891 Long term (current) use of opiate analgesic; Z88.1 Allergy status to other antibiotic agents; Z88.8 Allergy status to other drugs, medicaments and biological substances; I25.2 Old myocardial infarction; Z98.61 Coronary angioplasty status
CPT/HCPCS: 36415; 70450; 71045; 74177; 80048; 80053; 83605; 83690; 83735; 83880; 84484; 85025; 87081; 93005; 94640; 96361; 96374; 97110; 97116; 97163; 97530; G0378; J2405

== ENCOUNTER 2022-04-18 04:07 | Inpatient (IN) | payer MEDICARE, OTHER ==
[~2022-04-18] VITALS: Ht 157.5 cm; Wt 77.6 kg
[~2022-04-18 04:07] MED LIST changes: +ACET-1158 PO; +ALPR0.254 PO; -ALPR0.5T7 PO; -AMLO-496 PO; -ASPI-498 PO; +ATOR10TA52 PO; +BUDE0.5S IN; +CHOL20004 PO; -CLOP75TA28 PO; +COLE1TAB2 PO; +FLUT1SPR21; +FLUT250M2 INH; -GABA300C10 PO; +GABA400C11 PO; +LEVA0.6320 IN; -LEVO500T31 PO; -LOSA25TA38 PO; +MECL12.514 PO; +MELA3TAB27 PO; +METH10T PO; -METO-281 PO; +MULT-1018 PO; +OXY5T PO; -PANT1INJ3 PO; -PANT40T PO; +PANT40TA2 PO; -SUCR1TAB22 OR; +VALS40TA2 PO
[2022-04-18] MEDS ORDERED: ONDANSETRON ODT 4 MG TAB PO ONE (05:45)
[2022-04-18] MEDS ORDERED: HYDROcodone-ACET 5/325MG TAB PO ONE (05:45)
[2022-04-18 06:46] LABS: Basophils # (auto) 0.1 10 ^3/uL (0-0.2); Basophils % (auto) 0.6 % (0.0-2.0); Eosinophils # (auto) 0.2 10 ^3/uL (0-0.8); Eosinophils % (auto) 2.3 % (0.0-7.0); Hematocrit 37.1 % (36.0-46.0); Hemoglobin 12.3 g/dL (12.2-16.2); Lymphocytes # (auto) 0.7 10 ^3/uL (0.4-5.4); Lymphocytes % (auto) 6.5 % (10.0-50.0); Mean Corpuscular Hemoglobin 28.3 pg (28.0-32.0); Mean Corpuscular Hgb Conc. 33.1 g/dL (32.0-36.0); Mean Corpuscular Volume 85.3 fL (80.0-100.0); Monocytes # (auto) 0.7 10 ^3/uL (0-1.3); Monocytes % (auto) 6.3 % (0.0-12.0); Neutrophils # (auto) 8.9 10 ^3/uL (1.6-8.6); Neutrophils % (auto) 84.3 % (37.0-80.0); Red Blood Cells 4.34 10^6/uL (4.0-5.20); Red Cell Distribution Width 16.2 % (11.8-14.3); White Blood Cell 10.6 10^3/uL (4.4-10.8)
[2022-04-18 07:06] LABS: Potassium 3.2 mmol/L (3.5-5.1)
[2022-04-18 07:14] LABS: Albumin 2.4 g/dL (3.4-5.0); BUN/Creatinine Ratio 12.1; Bilirubin, Total 0.7 mg/dL (0.2-1.0); Calcium 8.5 mg/dL (8.5-10.1); Total Protein 6.5 g/dL (6.4-8.2)
[2022-04-18] MEDS ORDERED: cefTRIAXone 1GM/50ML D5W 50 ML IV ONE (09:00)
[2022-04-18 09:58] LABS: Urine Bacteria NONE SEEN /hpf (None Seen); Urine WBC 1 /hpf (0 - 5)
[2022-04-18 10:11] LABS: Urine Blood 1+ /uL (Negative)
[2022-04-18] MEDS ORDERED: POTASSIUM CHL 20 Meq TABLET PO ONE (13:15)
[2022-04-18] MEDS ORDERED: DOCUSATE SOD 100 MG CAP PO PRN (13:15)
[2022-04-18] MEDS ORDERED: LEVALBUTEROL HYDROCHLORIDE 0.63 MG/3 ML NEB SOLN NEB SCH (14:00)
[2022-04-18] MEDS: ONDANSETRON HCL 4 MG/2 ML VIAL IV PRN ×2 (14:09→19:01)
[2022-04-18] MEDS: MORPHINE SULFATE INJ 2 MG/ml SYRG IV PRN ×3 (14:10→23:07)
[2022-04-18 16:02] VITALS: BP 145/71
[2022-04-18] MEDS ORDERED: LEVALBUTEROL HCL 1.25 MG/3 ML NEB NEB SCH (16:05)
[2022-04-18] MEDS ORDERED: GABAPENTIN 400 MG CAP PO SCH (17:30)
[2022-04-18] MEDS: BUDESONIDE (INHALATION) 0.5 MG/2 ML NEB HHN SCH (19:40)
[2022-04-18] MEDS: LEVALBUTEROL HCL 1.25 MG/3 ML NEB NEB SCH (19:40)
[2022-04-18] MEDS: MELATONIN 5 MG TAB PO SCH (21:39)
[2022-04-18] MEDS: PANTOPRAZOLE 40 MG TAB PO SCH (21:39)
[2022-04-18] MEDS: FLUTICASONE SALMETEROL IN SCH (21:40)
[2022-04-18] MEDS: COLESTIPOL HCL 1 GM PO SCH (21:40)
[2022-04-18 22:00] VITALS: BP_SYST 123; BP_SYST 127; BP_DIAS 47; BP_DIAS 76
[2022-04-18 22:20] VITALS: BP 127/47
[2022-04-19] MEDS: MORPHINE SULFATE INJ 2 MG/ml SYRG IV PRN ×4 (03:36→21:39)
[2022-04-19 05:00] VITALS: BP_SYST 122; BP_SYST 137; BP_DIAS 56; BP_DIAS 64
[2022-04-19] MEDS: LEVALBUTEROL HCL 1.25 MG/3 ML NEB NEB SCH ×3 (06:48→19:20)
[2022-04-19] MEDS: BUDESONIDE (INHALATION) 0.5 MG/2 ML NEB HHN SCH ×2 (06:48→19:20)
[2022-04-19] MEDS ORDERED: GABAPENTIN 400 MG CAP PO SCH ×3 (07:00→12:00)
[2022-04-19 07:04] LABS: Basophils # (auto) 0.1 10 ^3/uL (0-0.2); Basophils % (auto) 1.2 % (0.0-2.0); Eosinophils # (auto) 0.2 10 ^3/uL (0-0.8); Eosinophils % (auto) 2.6 % (0.0-7.0); Hematocrit 33.6 % (36.0-46.0); Hemoglobin 10.9 g/dL (12.2-16.2); Lymphocytes # (auto) 1.1 10 ^3/uL (0.4-5.4); Lymphocytes % (auto) 13.1 % (10.0-50.0); Mean Corpuscular Hemoglobin 27.7 pg (28.0-32.0); Mean Corpuscular Hgb Conc. 32.6 g/dL (32.0-36.0); Mean Corpuscular Volume 85.2 fL (80.0-100.0); Monocytes # (auto) 0.9 10 ^3/uL (0-1.3); Monocytes % (auto) 10.7 % (0.0-12.0); Neutrophils # (auto) 6.2 10 ^3/uL (1.6-8.6); Neutrophils % (auto) 72.4 % (37.0-80.0); Nucleated Red Blood Cells % 0.3 %; Red Blood Cells 3.94 10^6/uL (4.0-5.20); Red Cell Distribution Width 16.6 % (11.8-14.3); White Blood Cell 8.6 10^3/uL (4.4-10.8)
[2022-04-19 07:13] LABS: Potassium 4.4 mmol/L (3.5-5.1)
[2022-04-19 07:21] LABS: BUN/Creatinine Ratio 10.3; Bilirubin, Total 0.3 mg/dL (0.2-1.0); Calcium 8.2 mg/dL (8.5-10.1); Total Protein 5.3 g/dL (6.4-8.2)
[2022-04-19 09:00] VITALS: BP 135/52
[2022-04-19] MEDS ORDERED: cefTRIAXone 1GM/50ML D5W 50 ML IV SCH (09:00)
[2022-04-19] MEDS: COLESTIPOL HCL 1 GM PO SCH ×2 (09:23→21:39)
[2022-04-19] MEDS: FLUTICASONE SALMETEROL IN SCH ×2 (09:23→21:39)
[2022-04-19] MEDS: VALSARTAN 80 MG TAB PO SCH (09:24)
[2022-04-19] MEDS: ATORVASTATIN 20 MG TAB PO SCH (09:24)
[2022-04-19] MEDS: CLOPIDOGREL BISULFATE 75 MG TAB PO SCH (09:25)
[2022-04-19] MEDS: MULTIPLE VITAMIN TAB PO SCH (09:25)
[2022-04-19] MEDS: PANTOPRAZOLE 40 MG TAB PO SCH ×2 (09:25→21:37)
[2022-04-19] MEDS: ENOXAPARIN SOD 40 MG/0.4 ML SYRINGE SC SCH (09:25)
[2022-04-19 13:00] VITALS: BP 137/54
[2022-04-19 14:38] LABS: INR 1.29 (0.9-1.15); Partial Thromboplastin Time 36.9 sec (24.6-33.4)
[2022-04-19 16:24] VITALS: BP 115/53
[2022-04-19] MEDS ORDERED: GABA400C11 PO ×3 (16:50)
[2022-04-19] MEDS: MELATONIN 5 MG TAB PO SCH (21:36)
[2022-04-19] MEDS: GABAPENTIN 400 MG CAP PO SCH (21:36)
[2022-04-19 22:00] VITALS: BP 131/52
[2022-04-20 05:00] VITALS: BP 126/51
[2022-04-20] MEDS: LEVALBUTEROL HCL 1.25 MG/3 ML NEB NEB SCH ×3 (06:00→21:09)
[2022-04-20] MEDS: MORPHINE SULFATE INJ 2 MG/ml SYRG IV PRN ×2 (06:06→13:31)
[2022-04-20] MEDS ORDERED: BUPIVACAINE W/ EPINEPH 0.25% INJ 50ML MDV ONE (06:42)
[2022-04-20] MEDS: GABAPENTIN 400 MG CAP PO SCH ×3 (06:49→21:07)
[2022-04-20] MEDS: BUDESONIDE (INHALATION) 0.5 MG/2 ML NEB HHN SCH ×2 (06:52→21:09)
[2022-04-20] MEDS ORDERED: cefTRIAXone SOD 1,000 MG VL ONE (07:21)
[2022-04-20 07:30] VITALS: BP 132/62
[2022-04-20] MEDS ORDERED: fentaNYL CITRATE 100 MCG/2 ML VL ONE ×2 (07:39→08:58)
[2022-04-20] MEDS ORDERED: MIDAZOLAM HCL 2MG/2ML 2ml VIAL (1mg/ml) ONE (07:39)
[2022-04-20] MEDS ORDERED: ONDANSETRON HCL 4 MG/2 ML VIAL ONE (08:40)
[2022-04-20] MEDS ORDERED: ETOMIDATE (2MG/ML) 20ML VIAL IV ONE ×2 (08:40→14:08)
[2022-04-20 09:00] VITALS: BP 119/52
[2022-04-20] MEDS ORDERED: ONDANSETRON HCL 4 MG/2 ML VIAL IV PRN (09:15)
[2022-04-20] MEDS ORDERED: HYDROmorphone HCL 2 MG/ML VL/or syr IV PRN (09:15)
[2022-04-20] MEDS ORDERED: SUCCINYLCHOLINE CHLORIDE 20 MG/ML 10ML VIAL IV ONE (09:27)
[2022-04-20] MEDS: COLESTIPOL HCL 1 GM PO SCH ×2 (10:00→22:00)
[2022-04-20] MEDS: FLUTICASONE SALMETEROL IN SCH ×2 (10:00→22:00)
[2022-04-20] MEDS: ATORVASTATIN 20 MG TAB PO SCH (10:30)
[2022-04-20] MEDS: PANTOPRAZOLE 40 MG TAB PO SCH ×2 (10:30→21:07)
[2022-04-20] MEDS: VALSARTAN 80 MG TAB PO SCH (10:30)
[2022-04-20] MEDS: ENOXAPARIN SOD 40 MG/0.4 ML SYRINGE SC SCH (10:31)
[2022-04-20] MEDS: CLOPIDOGREL BISULFATE 75 MG TAB PO SCH (10:31)
[2022-04-20] MEDS: MULTIPLE VITAMIN TAB PO SCH (10:31)
[2022-04-20] MEDS: ACETAMINOPHEN 500 MG TAB PO PRN (11:59)
[2022-04-20 13:00] VITALS: BP 149/51
[2022-04-20] MEDS: HYDROmorphone HCL 2 MG/ML VL/or syr IV PRN (16:23)
[2022-04-20 17:00] VITALS: BP 114/50
[2022-04-20] MEDS: ALPRAZolam 0.25 MG TAB PO PRN (21:05)
[2022-04-20] MEDS: MELATONIN 5 MG TAB PO SCH (21:07)
[2022-04-20 22:00] VITALS: BP 107/42
[2022-04-21 05:00] VITALS: BP 113/47
[2022-04-21] MEDS: GABAPENTIN 400 MG CAP PO SCH ×3 (06:17→21:31)
[2022-04-21 07:30] VITALS: BP 150/56
[2022-04-21] MEDS: COLESTIPOL HCL 1 GM PO SCH ×2 (07:40→21:31)
[2022-04-21] MEDS: FLUTICASONE SALMETEROL IN SCH ×2 (07:40→22:00)
[2022-04-21 09:00] VITALS: BP 94/41
[2022-04-21] MEDS: VALSARTAN 80 MG TAB PO SCH (10:00)
[2022-04-21] MEDS: PANTOPRAZOLE 40 MG TAB PO SCH ×2 (10:12→21:31)
[2022-04-21] MEDS: MULTIPLE VITAMIN TAB PO SCH (10:12)
[2022-04-21] MEDS: ATORVASTATIN 20 MG TAB PO SCH (10:15)
[2022-04-21] MEDS: CLOPIDOGREL BISULFATE 75 MG TAB PO SCH (10:15)
[2022-04-21] MEDS: ENOXAPARIN SOD 40 MG/0.4 ML SYRINGE SC SCH (10:17)
[2022-04-21 14:20] VITALS: BP 103/42
[2022-04-21] MEDS: HYDROmorphone HCL 2 MG/ML VL/or syr IV PRN ×2 (17:11→21:33)
[2022-04-21] MEDS: MELATONIN 5 MG TAB PO SCH (21:30)
[2022-04-21 22:00] VITALS: BP 100/42
[2022-04-22 05:00] VITALS: BP 113/68
[2022-04-22] MEDS: GABAPENTIN 400 MG CAP PO SCH ×3 (06:03→22:28)
[2022-04-22] MEDS: HYDROmorphone HCL 2 MG/ML VL/or syr IV PRN (08:11)
[2022-04-22 09:00] VITALS: BP 132/39
[2022-04-22] MEDS: COLESTIPOL HCL 1 GM PO SCH ×2 (10:00→22:00)
[2022-04-22] MEDS: FLUTICASONE SALMETEROL IN SCH ×2 (10:00→22:00)
[2022-04-22] MEDS: MULTIPLE VITAMIN TAB PO SCH (10:12)
[2022-04-22] MEDS: ENOXAPARIN SOD 40 MG/0.4 ML SYRINGE SC SCH (10:12)
[2022-04-22] MEDS: ATORVASTATIN 20 MG TAB PO SCH (10:13)
[2022-04-22] MEDS: PANTOPRAZOLE 40 MG TAB PO SCH ×2 (10:13→22:28)
[2022-04-22] MEDS: CLOPIDOGREL BISULFATE 75 MG TAB PO SCH (10:13)
[2022-04-22] MEDS: VALSARTAN 80 MG TAB PO SCH (10:15)
[2022-04-22 13:00] VITALS: BP 88/43
[2022-04-22] MEDS: ALPRAZolam 0.25 MG TAB PO PRN (13:05)
[2022-04-22] MEDS: ACETAMINOPHEN 500 MG TAB PO PRN (13:05)
[2022-04-22 17:30] VITALS: BP 125/45
[2022-04-22] MEDS: MORPHINE SULFATE INJ 2 MG/ml SYRG IV PRN (17:51)
[2022-04-22 22:00] VITALS: BP 122/44
[2022-04-22] MEDS: MELATONIN 5 MG TAB PO SCH (22:28)
[2022-04-22] MEDS: Pro-Stat SF 30ml Vanilla PO SCH (22:30)
[2022-04-23 05:00] VITALS: BP 103/41
[2022-04-23] MEDS: GABAPENTIN 400 MG CAP PO SCH ×3 (06:04→21:25)
[2022-04-23 08:43] VITALS: BP 115/46
[2022-04-23] MEDS: MORPHINE SULFATE INJ 2 MG/ml SYRG IV PRN (08:56)
[2022-04-23] MEDS ORDERED: HYDROmorphone HCL 2 MG TAB PO PRN (09:45)
[2022-04-23] MEDS: COLESTIPOL HCL 1 GM PO SCH ×2 (10:00→21:26)
[2022-04-23] MEDS: FLUTICASONE SALMETEROL IN SCH ×2 (10:00→22:00)
[2022-04-23] MEDS: VALSARTAN 80 MG TAB PO SCH (10:17)
[2022-04-23] MEDS: ENOXAPARIN SOD 40 MG/0.4 ML SYRINGE SC SCH (10:18)
[2022-04-23] MEDS: ATORVASTATIN 20 MG TAB PO SCH (10:18)
[2022-04-23] MEDS: PANTOPRAZOLE 40 MG TAB PO SCH ×2 (10:18→21:24)
[2022-04-23] MEDS: MULTIPLE VITAMIN TAB PO SCH (10:18)
[2022-04-23] MEDS: CLOPIDOGREL BISULFATE 75 MG TAB PO SCH (10:18)
[2022-04-23] MEDS: Juven Fruit Punch Powder PACKET 28.8gm PO SCH (10:30)
[2022-04-23] MEDS: Pro-Stat SF 30ml Vanilla PO SCH ×2 (10:37→21:29)
[2022-04-23] MEDS: HYDROmorphone HCL 2 MG TAB PO PRN ×3 (13:09→21:24)
[2022-04-23 13:15] VITALS: BP 107/37
[2022-04-23] MEDS: ALPRAZolam 0.25 MG TAB PO PRN (13:32)
[2022-04-23] MEDS: MELATONIN 5 MG TAB PO SCH (21:24)
[2022-04-23 22:00] VITALS: BP 117/32
[2022-04-24] MEDS: HYDROmorphone HCL 2 MG TAB PO PRN ×4 (04:22→20:03)
[2022-04-24 05:00] VITALS: BP 140/44
[2022-04-24] MEDS: GABAPENTIN 400 MG CAP PO SCH ×2 (06:11→14:45)
[2022-04-24 06:38] LABS: Basophils # (auto) 0 10 ^3/uL (0-0.2); Basophils % (auto) 0.4 % (0.0-2.0); Eosinophils # (auto) 0.6 10 ^3/uL (0-0.8); Eosinophils % (auto) 5.5 % (0.0-7.0); Hematocrit 34.5 % (36.0-46.0); Hemoglobin 11.4 g/dL (12.2-16.2); Lymphocytes % (auto) 9.7 % (10.0-50.0); Mean Corpuscular Hemoglobin 28.3 pg (28.0-32.0); Mean Corpuscular Volume 85.7 fL (80.0-100.0); Monocytes # (auto) 0.7 10 ^3/uL (0-1.3); Monocytes % (auto) 7.3 % (0.0-12.0); Neutrophils # (auto) 7.9 10 ^3/uL (1.6-8.6); Neutrophils % (auto) 77.1 % (37.0-80.0); Red Blood Cells 4.03 10^6/uL (4.0-5.20); White Blood Cell 10.2 10^3/uL (4.4-10.8)
[2022-04-24 07:15] LABS: Albumin 1.9 g/dL (3.4-5.0); BUN/Creatinine Ratio 13.5; Bilirubin, Total 0.4 mg/dL (0.2-1.0); Calcium 8.4 mg/dL (8.5-10.1); Potassium 4.2 mmol/L (3.5-5.1)
[2022-04-24 08:00] VITALS: BP 134/74
[2022-04-24] MEDS: FLUTICASONE SALMETEROL IN SCH (10:00)
[2022-04-24] MEDS: COLESTIPOL HCL 1 GM PO SCH (10:00)
[2022-04-24] MEDS: ENOXAPARIN SOD 40 MG/0.4 ML SYRINGE SC SCH (10:06)
[2022-04-24] MEDS: MULTIPLE VITAMIN TAB PO SCH (10:06)
[2022-04-24] MEDS: VALSARTAN 80 MG TAB PO SCH (10:07)
[2022-04-24] MEDS: ATORVASTATIN 20 MG TAB PO SCH (10:07)
[2022-04-24] MEDS: CLOPIDOGREL BISULFATE 75 MG TAB PO SCH (10:07)
[2022-04-24] MEDS: PANTOPRAZOLE 40 MG TAB PO SCH (10:07)
[2022-04-24] MEDS: Juven Fruit Punch Powder PACKET 28.8gm PO SCH (10:11)
[2022-04-24] MEDS: Pro-Stat SF 30ml Vanilla PO SCH (10:12)
[2022-04-24 12:00] VITALS: BP 158/58
[2022-04-24] MEDS ORDERED: HYDROmorphone HCL 2 MG/ML VL/or syr IV ONE (14:45)
[2022-04-24 16:00] VITALS: BP 124/54
[2022-04-24] MEDS ORDERED: OXY20CRT PO (16:03)
[2022-04-24] MEDS ORDERED: OXY5T PO ×2 (16:16→16:17)
[2022-04-24 17:42] VITALS: BP 134/74
== END 2022-04-24 20:25 | disposition home health service (06) | DRG 571 ==
LOC: EDBD 04:07 → ER 04:07 → OVERFLOW 13:27 → WEST WING 20:41
PROVIDERS: ADMIT Nurse Practitioner Family; ATTEND Student in an Organized Health Care Education/Training Program
PROC: 0JB70ZZ Excision of Back Subcutaneous Tissue and Fascia, Open Approach (ICD-10-PCS; principal; 2022-04-20 07:39)
DX: L89.323 Pressure ulcer of left buttock, stage 3 (principal); E87.1 Hypo-osmolality and hyponatremia; L97.129 Non-pressure chronic ulcer of left thigh with unspecified severity; J96.11 Chronic respiratory failure with hypoxia; S80.12XA Contusion of left lower leg, initial encounter; E78.5 Hyperlipidemia, unspecified; E87.6 Hypokalemia; F41.1 Generalized anxiety disorder; Z20.822 Contact with and (suspected) exposure to COVID-19; G62.9 Polyneuropathy, unspecified; G89.4 Chronic pain syndrome; I11.0 Hypertensive heart disease with heart failure; J44.9 Chronic obstructive pulmonary disease, unspecified; L89.159 Pressure ulcer of sacral region, unspecified stage; K21.9 Gastro-esophageal reflux disease without esophagitis; E78.00 Pure hypercholesterolemia, unspecified; N83.202 Unspecified ovarian cyst, left side; M94.0 Chondrocostal junction syndrome [Tietze]; Z88.8 Allergy status to other drugs, medicaments and biological substances
CPT/HCPCS: 36415; 73700; 76856; 80053; 81001; 82378; 85025; 85610; 85730; 86301; 87075; 87076; 87077; 87081; 87186; 87205; 87426; 94640; 96365; 96375; 97116; 97163; 97530; G0378; J0330; J0696; J2250; J2405; Q0162